=== PATIENT | male | born 1995 | race Caucasian/White ===

== ENCOUNTER 2017-12-31 20:50 | Emergency (ER) | payer OTHER ==
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
[2017-12-31] MEDS: Ketorolac 30 MG/ML SDV IVPUSH ONE (22:12)
== END 2017-12-31 23:35 | disposition home or self-care (01) ==
LOC: KA.ED 20:50
DX: S39.012A Strain of muscle, fascia and tendon of lower back, initial encounter (principal); S16.1XXA Strain of muscle, fascia and tendon at neck level, initial encounter; Z88.8 Allergy status to other drugs, medicaments and biological substances; V87.7XXA Person injured in collision between other specified motor vehicles (traffic), initial encounter
CPT/HCPCS: 72100; 72125; 96374; 99284; J1885